=== PATIENT | male | born 1980 | race Caucasian/White ===

== ENCOUNTER 2017-01-13 18:59 | Emergency (ER) | payer BC ==
--- NOTE | 2017-01-13 19:42 | Emergency Department Record ---
History of Present Illness - General Chief complaint: Lower Extremity Pain Stated complaint: LT LEG THIGH NUMBNESS RADIATING UP AND DOWNWARD Time Seen by Provider: 01/13/17 19:27 Source: Patient - History of Present Illness Initial comments: The patienbt has had 3 days of numbness in his left anterior thigh which has increased in the size of the numb area. He denies injury, pain, swelling or muscle weakness. He has a history of forming cysts and has known cysts to jayna thigh. He has had over 40 cysts removed in the past years. He ambulates competely normally. - Related Data Home Medications Medication Instructions Recorded Confirmed Last Taken Lisinopril 20 mg PO DAILY 01/13/17 01/13/17 Unknown Metoprolol Tartrate [Lopressor] 50 mg PO BID 01/13/17 01/13/17 Unknown Omeprazole [Prilosec] 20 mg PO DAILY 01/13/17 01/13/17 Unknown Allergies Allergy/AdvReac Type Severity Reaction Status Date / Time ibuprofen Allergy HIVES Verified 01/13/17 19:24 latex Allergy RASH Verified 01/13/17 19:24 bee venom protein (honey bee) AdvReac SWELLING Verified 01/13/17 19:24 (GENERAL) Review of Systems Reviewed: No additional complaints except as noted below Constitutional: Reports: As per HPI. Denies: Chills, Fever, Malaise, Night sweats, Weakness, Weight change Eyes: Reports: As per HPI. Denies: Eye discharge, Eye pain, Photophobia, Vision change ENT: Reports: As per HPI. Denies: Congestion, Dental pain, Ear pain, Epistaxis , Hearing loss, Throat pain Respiratory: Reports: As per HPI. Denies: Cough, Dyspnea, Hemoptysis, Stridor, Wheezes Cardiovascular: Reports: As per HPI. Denies: Arrhythmia, Chest pain, Dyspnea on exertion, Edema, Murmurs, Orthopnea, Palpitations, Paroxysmal nocturnal dyspnea, Rheumatic Fever, Syncope Endocrine: Reports: As per HPI. Denies: Fatigue, Heat or cold intolerance, Polydipsia, Polyuria Gastrointestinal: Reports: As per HPI. Denies: Abdominal pain, Constipation, Diarrhea, Hematemesis, Hematochezia, Melena, Nausea, Vomiting Genitourinary: Reports: As per HPI. Denies: Dysuria, Frequency, Hematuria, Incontinence, Retention, Testicular pain, Testicular mass, Urgency Musculoskeletal: Reports: As per HPI. Denies: Arthralgia, Back pain, Gout, Joint swelling, Myalgia, Neck pain Skin: Reports: As per HPI. Denies: Bruising, Change in color, Change in hair/ nails, Lesions, Pruritus, Rash Neurological: Reports: As per HPI. Denies: Abnormal gait, Confusion, Headache, Numbness, Paresthesias, Seizure, Tingling, Tremors, Vertigo, Weakness Psychiatric: Reports: As per HPI. Denies: Anxiety, Auditory hallucinations, Depression, Homicidal thoughts, Suicidal thoughts, Visual hallucinations Hematological/Lymphatic: Reports: As per HPI. Denies: Anemia, Blood Clots, Easy bleeding, Easy bruising, Swollen glands Physical Exam - General General Appearance: Alert, Oriented x3, Cooperative, No acute distress, Other ( obese, NAD) - Head Head exam: Normal inspection - Eye Eye exam: Normal appearance, PERRL Pupils: Normal accommodation - ENT ENT exam: Normal exam, Mucous membranes moist, Normal external ear exam, Normal orophraynx, TM's normal bilaterally Ear exam: Normal external inspection. negative: External canal tenderness Nasal Exam: Normal inspection. negative: Discharge, Sinus tenderness Mouth exam: Normal external inspection, Tongue normal Teeth exam: Normal inspection. negative: Dental caries Throat exam: Normal inspection. negative: Tonsillar erythema, Tonsillar exudate - Neck Neck exam: Normal inspection, Full ROM. negative: Tenderness - Respiratory Respiratory exam: Normal lung sounds bilaterally. negative: Respiratory distress - Cardiovascular Cardiovascular Exam: Regular rate, Normal rhythm, Normal heart sounds - GI/Abdominal GI/Abdominal exam: Soft, Normal bowel sounds. negative: Tenderness - Rectal Rectal exam: Deferred - exam: Deferred - Extremities Extremities exam: Normal inspection, Full ROM, Normal capillary refill, Other ( palpable cystic areas over anterior thigh which are nontender, without warmth or erythema. Sharp sensation and dull sensation intact throughout thigh. Stron equal pulses in legs bilaterally wit normal color and temperature. Reflexes 2 plus and ewqual bilaterally in lower extremities.). negative: Tenderness - Back Back exam: Reports: Normal inspection, Full ROM. Denies: CVA tenderness (R), CVA tenderness (L), Muscle spasm, Paraspinal tenderness, Rash noted, Tenderness , Vertebral tenderness - Neurological Neurological exam: Alert, Normal gait, Oriented X3, Reflexes normal - Psychiatric Psychiatric exam: Normal affect, Normal mood - Skin Skin exam: Dry, Intact, Normal color, Warm Course Vital Signs 01/13/17 19:20 Temperature 98.6 F Pulse Rate [ 93 H Pulse Ox Probe] Respiratory 18 Rate Blood Pressure 120/88 [Left Arm] Pulse Ox 99 Medical Decision Making - Management Options MDM Management: Additional Work-up Planned (e.g. ADM/Transfer/OP Study) (Follow up [facility] for out patient ultrasound at 9 a.m. tomorrow and then with in office.) Disposition Disposition: Discharge Clinical Impression: Numbness of left anterior thigh, Lipoma of left thigh Disposition: Home, Self-Care Condition: (1) Good Instructions: Meralgia Paresthetica (ED) Additional Instructions: Ultrasound of leg tomorrow at 9 a.m. as an out patient (not emergency department ). Follow up after that with Dr. Ramachandran in his office. Forms: Patient Portal Access Quality - Quality Measures Quality Measures: N/A - Blood Pressure Screening Does Patient Have Any of the Following: No Blood Pressure Classification: Pre-Hypertensive BP Reading Systolic Measurement: 120 Diastolic Measurement: 88 Screening for High Blood Pressure: < Normal BP, F/U Not Required > [G8783]
== END 2017-01-13 20:10 | disposition home or self-care (01) ==
LOC: ER 18:59
DX: R20.0 Anesthesia of skin (principal); D17.24 Benign lipomatous neoplasm of skin and subcutaneous tissue of left leg
CPT/HCPCS: 99282

== ENCOUNTER 2017-10-27 21:42 | Emergency (ER) | payer BC ==
--- NOTE | 2017-10-27 21:54 | Emergency Department Record ---
History of Present Illness - General Chief Complaint: Chest Pain Stated Complaint: CHEST PAIN Time Seen by Provider: 10/27/17 21:51 Source: Patient Mode of Arrival: Wheelchair Limitations: No limitations - History of Present Illness Initial Comments: 37 yo male presents to ED for evaluation of sharp chest discomfort symptoms that began 1 hour ago. Patient describes his pain as an "ache" in the left chest, denies radiation. Patient denies fevers, chills, or cough symptoms. Patient denies history of DVT, calf pain or swelling, or recent surgeries. Patient denies health problems other than HTN and GERD. MD Complaint: Chest pain Onset/Timin -: Hour(s) Onset: During rest Pain Location: Left chest Pain Radiation: None Severity: Moderate Quality: Aching Consistency: Constant Improves With: Nothing Worsens With: Nothing Treatments Prior to Arrival: None - Related Data Allergies Allergy/AdvReac Type Severity Reaction Status Date / Time ibuprofen Allergy HIVES Verified 01/13/17 19:24 latex Allergy RASH Verified 01/13/17 19:24 bee venom protein (honey bee) AdvReac SWELLING Verified 01/13/17 19:24 (GENERAL) Travel Screening - Travel/Exposure Within Last 30 Days Have you traveled within the last 30 days?: No - Travel/Exposure Within Last Year Have you traveled outside the [place] in the last year?: No - Additonal Travel Details Have you been exposed to anyone with a communicable illness?: No - Travel Symptoms Symptom Screening: None Review of Systems Constitutional: Denies: Chills, Fever, Malaise, Night sweats Eyes: Denies: Eye discharge, Eye pain ENT: Denies: Congestion, Ear pain, Epistaxis Respiratory: Denies: Cough, Dyspnea Cardiovascular: Reports: Chest pain. Denies: Dyspnea on exertion Endocrine: Denies: Fatigue, Heat or cold intolerance Gastrointestinal: Denies: Abdominal pain, Nausea, Vomiting Genitourinary: Denies: Incontinence, Retention Musculoskeletal: Denies: Arthralgia, Back pain, Gout, Joint swelling Skin: Denies: Bruising, Change in color Neurological: Denies: Abnormal gait, Confusion, Headache, Seizure Psychiatric: Reports: Anxiety Hematological/Lymphatic: Denies: Anemia, Blood Clots Past Medical History - SOCIAL HISTORY Smoking Status: Never smoker Alcohol Use: None Drug Use: None - RESPIRATORY Hx Respiratory Disorders: No - CARDIOVASCULAR Hx Cardio Disorders: Yes Hx Hypertension: Yes - NEURO Hx Neuro Disorders: No - GI Hx GI Disorders: Yes Hx Reflux: Yes - Hx Genitourinary Disorders: No - ENDOCRINE Hx Endocrine Disorders: No - MUSCULOSKELETAL Hx Musculoskeletal Disorders: No - PSYCH Hx Psych Problems: No - HEMATOLOGY/ONCOLOGY Hx Hematology/Oncology Disorders: No Family Medical History Any Significant Family History?: No Physical Exam - General General Appearance: Alert, Oriented x3, Cooperative, Anxious Limitations: No limitations - Head Head exam: Atraumatic, Normocephalic, Normal inspection Head exam detail: negative: Abrasion, Contusion, Nogueira's sign, General tenderness, Hematoma, Laceration - Eye Eye exam: Normal appearance. negative: Conjunctival injection, Periorbital swelling, Periorbital tenderness, Scleral icterus - ENT Ear exam: negative: Auricular hematoma, Auricular trauma Nasal Exam: negative: Active bleeding, Discharge, Dried blood, Foreign body Mouth exam: negative: Drooling, Laceration, Muffled voice, Tongue elevation - Neck Neck exam: Normal inspection. negative: Meningismus, Tenderness - Respiratory Respiratory exam: Normal lung sounds bilaterally. negative: Rales, Respiratory distress, Rhonchi, Stridor - Cardiovascular Cardiovascular Exam: Regular rate, Normal rhythm, Normal heart sounds - GI/Abdominal GI/Abdominal exam: Soft. negative: Rebound, Rigid, Tenderness - Rectal Rectal exam: Deferred - exam: Deferred - Extremities Extremities exam: Normal inspection. negative: Calf tenderness, Pedal edema, Tenderness - Back Back exam: Denies: CVA tenderness (R), CVA tenderness (L) - Neurological Neurological exam: Alert, Normal gait, Oriented X3 - Psychiatric Psychiatric exam: Anxious - Skin Skin exam: Normal color. negative: Abrasion Type of lesion: negative: abrasion Course Vital Signs 10/27/17 10/27/17 21:43 21:50 Pulse Rate 97 H Respiratory 24 Rate Blood Pressure 138/112 [Left Arm] Pulse Ox 100 - Reevaluation(s) Reevaluation #1: 10/27/17 21:53 EKG: NSR 89 Normal axis, normal intervals No acute ST-T wave changes PERC clinical decision rule was applied, and the patient does not have any of the following: -Age > 50 years -Pulse > 100 -Oxygen Saturation < 94% -History of Hemoptysis -Unilateral leg swelling -History or PE/DVT -Recent surgery or Trauma -Oral contraceptive/Hormone use Patient was seen and examined, will initiate cardiac evaluation and apply HEART score following troponin result. Ativan ordered for patient's anxiety symptoms as well. Reevaluation #2: 10/27/17 22:37 Labs reviewed and are grossly unremarkable for an acute process. CXR: Negative. The patient was deemed to be low-risk for cardiac disease based on the patient s history and evaluation in the ED, HEART Score was applied and found to be 1. As a result, repeat Troponin in 3-hours appears appropriate and if negative for myocardial injury, the patient may be discharged home with appropriate outpatient follow-up for further evaluation. Patient and his SO were updated on all results as well as the plan for 3-hour Troponin. Patient denies needs at this time. Reevaluation #3: 10/28/17 01:11 Repeat troponin is negative for myocardial injury. Patient reports that he is feeling much improved, and appears stable for discharge at this time. Medical Decision Making - Lab Data Result diagrams: 10/27/17 21:45 10/27/17 21:45 Disposition Disposition: Discharge Clinical Impression: Chest pain Qualifiers: Chest pain type: unspecified Qualified Code(s): R07.9 - Chest pain, unspecified Disposition: Home, Self-Care Condition: (2) Stable Instructions: Chest Pain (ED) Additional Instructions: Return to ED if your symptoms worsen or if you have any concerns. Follow-up with your family doctor in 3-5 days as directed. Referrals: JOSELO MOLINA M.D. [MEDICAL DOCTOR] - [facility] [Provider Group] Forms: Patient Portal Access Time of Disposition: 01:10 Quality - Quality Measures Quality Measures: N/A - Blood Pressure Screening Does Patient Have Any of the Following: No Blood Pressure Classification: Hypertensive Reading Systolic Measurement: 140 Diastolic Measurement: 90 Screening for High Blood Pressure: < First Hypertensive BP, F/U Documented > [ G8950] First Hypertensive Follow-up Interventions: Referral to alternative/primary care provider.
[2017-10-27] MEDS ORDERED: LORAZEPAM 2 MG/ML VIAL IV ONE (22:04)
[2017-10-27] MEDS ORDERED: ASPIRIN 81 MG CHEWABLE TABLET PO ONE (22:04)
[2017-10-27 22:11] LABS: BASO % 0.4 % (0-6); EOS % 2.8 % (0-6); GRAN % 54.4 % (47-80); HEMOGLOBIN 15.2 gm/dl (14.0-18.0); LYMPH % 35.2 % (16-45); MEAN CELL VOLUME 85.1 fl (81-97); MEAN CORPUSCULAR HEMOGLOBIN 30.1 pg (27-33); MEAN CORPUSCULAR HGB CONC 35.3 g/dl (32-36); MEAN PLATELET VOLUME 9.8 fl (7.4-10.4); MONO % 7.2 % (0-9); PLATELET COUNT 321 K/uL (130-400); RED BLOOD COUNT 5.05 M/uL (4.40-5.70); RED CELL DISTRIBUTION WIDTH 13.4 % (11.5-14.5); WHITE BLOOD COUNT W/O DIFF 11.3 K/uL (4.2-12.2)
[2017-10-27 22:24] LABS: BLOOD UREA NITROGEN 17 mg/dL (6-20); CREATININE 0.7 mg/dL (0.7-1.2); EST GLOMERULAR FILTRATION RATE > 60 mL/min
[2017-10-27 22:25] LABS: TOTAL PROTEIN 8.2 g/dL (6.6-8.7)
[2017-10-27 22:27] LABS: GLUCOSE,RANDOM 94 mg/dL (74-109)
[2017-10-27 22:30] LABS: ALB/GLOB RATIO 1.3 (1.1-1.8); ALBUMIN 4.6 g/dL (4.0-5.0); ALKALINE PHOSPHATASE 71 U/L (40-129); ALT/SGPT 13 U/L (<41); AST/SGOT 17 U/L (10.0-50.0)
--- NOTE | 2017-10-28 13:32 | RADIOLOGY REPORT ---
EXAM: CHEST, TWO VIEWS HISTORY: LEFT SIDED CHEST PAIN AND SHORTNESS OF BREATH. TECHNIQUE: PA and lateral views of the chest were obtained. Comparison: None. FINDINGS: There is some mild blurring artifact on both views. The heart size is within normal limits. No definite acute infiltrate is seen and no pleural effusion or pneumothorax evident. Mild spurring in the spine. IMPRESSION: 1. MILD SPURRING IN THE SPINE WITH A MILD LOWER THORACIC CURVE TO THE LEFT. 2. SOME MILD BLURRING ARTIFACT, BUT NO DEFINITE ACUTE INFILTRATE SEEN. JOB NUMBER: [id number] [facility]
== END 2017-10-28 01:28 | disposition home or self-care (01) ==
LOC: ER 21:42
DX: R07.89 Other chest pain (principal); R06.02 Shortness of breath; I10 Essential (primary) hypertension; Z86.718 Personal history of other venous thrombosis and embolism
CPT/HCPCS: 99284 ×2; 96374; 85025; 80053; 84484; 71046; 93005; 93010; J2060